=== PATIENT | male | born 1955 | race Caucasian/White ===

== ENCOUNTER 2018-02-12 15:11 | Inpatient (IN) ==
[2018-02-12] MEDS ORDERED: *HR* Heparin 5,000 UNIT/ML VIAL SQ ONE (15:30)
[2018-02-12] MEDS ORDERED: *HR* Ticagrelor 90 MG TABLET PO ONE (15:30)
[2018-02-12] MEDS ORDERED: Aspirin 81 MG TAB.CHEW PO ONE (15:31)
[2018-02-12] MEDS ORDERED: *HR* Ticagrelor 90 MG TABLET ONE (15:32)
[2018-02-12] MEDS ORDERED: 0.9 % Sodium Chloride 1,000 ML ONE ×2 (15:33→16:23)
[2018-02-12] MEDS ORDERED: Nitroglycerin 0.4 MG TAB.SUBL SL PRN (15:33)
[2018-02-12] MEDS ORDERED: Aspirin 81 MG TAB.CHEW ONE (15:33)
[2018-02-12] MEDS ORDERED: *HR* Heparin 5,000 UNIT/ML VIAL ONE (15:33)
[2018-02-12] MEDS ORDERED: 0.9 % Sodium Chloride 1,000 ML IVC ONE (15:38)
--- NOTE | 2018-02-12 15:42 | Emergency Department Note ---
Disposition Clinical Impression: Chest pain ST elevation myocardial infarction (STEMI) Qualifiers: Involved coronary artery: unspecified coronary artery Qualified Code(s): I21.3 - ST elevation (STEMI) myocardial infarction of unspecified site Disposition: Admitted As Inpatient Condition: Fair Time of Disposition: 18:09 Chest Pain HPI - General Chief Complaint: ED Chest Pain Stated Complaint: CP Fever post Op Time Seen by Provider: 02/12/18 15:14 Source: family Mode of arrival: private vehicle Limitations: no limitations Vital Signs Reviewed: Yes Nursing Notes Reviewed: Yes - History of Present Illness HPI Narrative: Pt is 62M with a past medical history of 2 previous heart attacks with his last one in his thousand and 10, with the placement of 3 stents between the 2 heart attacks, denies any open heart surgeries. States that he had a colonoscopy today at noon, and then around 2:30 he started with some chest pain after he got home and sat down. He describes the chest pain as in his upper chest, with radiation to his jaw, he feels a little nauseated, lightheaded, dizzy, and weak. He states he has not eaten since yesterday due to preparing for the colonoscopy. States that his pain is not worse with deep breathing and not worse with exertion. He states that it is a 6 out of 10 in severity. States that he is normally on Plavix, but has not had any for 5 days in preparation for his colonoscopy, he is normally on a baby aspirin but also did not take that for the last 5 days. Denies abdominal pain, denies vomiting, does state that he feels hot. Severity scale (1-10): 6 - Related Data Allergies Allergy/AdvReac Type Severity Reaction Status Date / Time Penicillins Allergy See Verified 07/28/15 06:20 Comments Constitutional: Reports: weakness. 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 Denies: abdominal pain, vomiting, diarrhea, constipation Chest Pain PMH - Past Medical History Medical history: Reports: hyperlipidemia, hypertension, myocardial infarction Surgical history: Reports: angioplasty/stent Psychiatric history: Reports: no psych history - Social History Smoking Status: Current every day smoker Alcohol use: Reports: heavy Drug use: Reports: none Physical Exam - General Limitations: no limitations General appearance: alert - Head Head exam: atraumatic, normocephalic - Eye Eye exam: Present: normal appearance, PERRL - ENT ENT exam: normal exam, normal oropharynx, mucous membranes moist - Neck Neck exam: Present: normal inspection, full ROM - Chest Chest inspection: Present: normal inspection, symmetric chest wall rise - Respiratory Respiratory exam: Present: normal lung sounds bilaterally. Absent: respiratory distress, wheezes - Cardiovascular Cardiovascular exam: Present: regular rate, normal rhythm - Abdominal Exam Abdominal exam: Present: soft, Non-Tender - Neurological Exam Neurological exam: Present: alert, oriented X3 - Psychiatric Psychiatric exam: Present: normal affect, normal mood - Skin Skin exam: Present: other (cool, clammy, diaphoretic) Course - Reevaluation(s) Reevaluation #1: STEMI alert called Time: 15:25 Vital Signs Temperature 97.5 F L 02/12/18 15:27 Pulse Rate 71 02/12/18 15:27 Respiratory Rate 22 02/12/18 15:27 Blood Pressure 176/119 02/12/18 15:27 O2 Sat by Pulse Oximetry 97 02/12/18 15:27 Temperature 97.7 F 02/12/18 17:44 Pulse Rate 80 02/12/18 17:49 Respiratory Rate 12 02/12/18 17:49 Blood Pressure 168/108 02/12/18 17:49 O2 Sat by Pulse Oximetry 97 02/12/18 17:49 Oxygen Delivery Oxygen Delivery Room Air Chest Pain - MDM Narrative Medical decision making narrative: Patient's history of 2 previous MIs, and sudden onset of chest pain after his colonoscopy today, along with EKG findings, and physical exam findings were very concerning for STEMI. STEMI alert was called, laborer chemical processing responded and took the patient to [facility] at 1606. - Medical Records Medical records reviewed: Yes I reviewed the patient's medical records. - Lab Data Lab results reviewed: Yes I reviewed the patient's lab results. Result diagrams: 02/12/18 15:30 02/12/18 15:30 Lab Results 02/12/18 02/12/18 02/12/18 Range/Units 15:30 15:30 15:30 WBC 12.7 H (4.3-11.1) K/mcL RBC 5.69 H (4.19-5.50) M/mcL Hgb 17.8 H (12.9-16.9) g/dL Hct 52.3 H (37.5-50.1) % MCV 91.9 (83.0-100.0) fL MCH 31.3 (28.0-33.3) pg MCHC 34.0 (31.6-35.5) g/dL RDW 12.5 (11.5-14.5) % Plt Count 181 (140-400) K/mcL MPV 11.3 (9.4-12.4) fL Immature Gran % 0.4 (0-4) % Seg Neutrophils % 77.9 % Lymphocytes % 14.3 % Monocytes % 6.1 % Eosinophils % 0.9 % Basophils % 0.4 % Neutrophils # 9.9 H (1.6-8.9) K/mcL Lymphocytes # 1.8 (0.6-4.6) K/mcL Monocytes # 0.8 (0.0-1.3) K/mcL Eosinophils # 0.1 (0.0-0.6) K/mcL Basophils # 0.1 (0.0-0.2) K/mcL PT 12.4 H (9.4-12.1) Seconds INR 1.1 APTT 32.9 (26.0-36.0) Seconds Sodium 138 (136-145) mEq/L Potassium 3.9 (3.5-5.1) mEq/L Chloride 104 (98-107) mEq/L Carbon Dioxide 26 (23-29) mEq/L BUN 12 (8-23) mg/dL Creatinine 1.29 (0.70-1.30) mg/dL Est GFR ( Amer) > 60 (> 60) Est GFR (Non-Af Amer) 57 L (> 60) BUN/Creatinine Ratio 9 (6-26) Glucose 153 H (70-105) mg/dL Calculated Osmolality 289 (280-300) Calcium 9.3 (8.6-10.3) mg/dL Troponin I 0.03 (< 0.04) ng/mL Blood Type Antibody Screen 02/12/18 Range/Units 15:56 WBC (4.3-11.1) K/mcL RBC (4.19-5.50) M/mcL Hgb (12.9-16.9) g/dL Hct (37.5-50.1) % MCV (83.0-100.0) fL MCH (28.0-33.3) pg MCHC (31.6-35.5) g/dL RDW (11.5-14.5) % Plt Count (140-400) K/mcL MPV (9.4-12.4) fL Immature Gran % (0-4) % Seg Neutrophils % % Lymphocytes % % Monocytes % % Eosinophils % % Basophils % % Neutrophils # (1.6-8.9) K/mcL Lymphocytes # (0.6-4.6) K/mcL Monocytes # (0.0-1.3) K/mcL Eosinophils # (0.0-0.6) K/mcL Basophils # (0.0-0.2) K/mcL PT (9.4-12.1) Seconds INR APTT (26.0-36.0) Seconds Sodium (136-145) mEq/L Potassium (3.5-5.1) mEq/L Chloride (98-107) mEq/L Carbon Dioxide (23-29) mEq/L BUN (8-23) mg/dL Creatinine (0.70-1.30) mg/dL Est GFR ( Amer) (> 60) Est GFR (Non-Af Amer) (> 60) BUN/Creatinine Ratio (6-26) Glucose (70-105) mg/dL Calculated Osmolality (280-300) Calcium (8.6-10.3) mg/dL Troponin I (< 0.04) ng/mL Blood Type O POSITIVE Antibody Screen NEGATIVE - Radiology Data Radiology results reviewed: Yes I reviewed the patient's radiology results. Chest X-Ray 02/12/18 15:19 IMPRESSION: No acute process. D/ / Brendon Gonsalez MD / Brendon Gonsalez MD Interpreting Provider: Brendon Gonsalez MD - EKG Data EKG attestation: Yes I reviewed and interpreted this EKG. EKG results narrative: EKG #1 1523: HR 76, rhythm sinus with multiple PVCs, left axis -62. IL 184, QRS 126, QTC 482. 1mm ST elevation in lead I and aVL, concerning for posterior STEMI. EKG #2 1537: HR 79, Rhythm sinus with multiple PVCs, left axis -53. IL 176, QRS 132, QTC 475. 1mm ST elevation in Lead I, aVL. Reciprocal ST depression in V2, V3. Concerning for posterior STEMI. Attestation Statement - Attestation Attestation: I, Vinny Brito DO, examined this patient [id number] and my medical decision-making was reviewed with Dr. Kirsten Perales, Resident Physician. I agree with the documented findings, disposition and treatment plan as described except to the extent set forth below. Please see my progress notes for details.
[2018-02-12 15:44] LABS: Basophils # 0.1 K/mcL (0.0-0.2); Basophils % 0.4 %; Eosinophils # 0.1 K/mcL (0.0-0.6); Eosinophils % 0.9 %; Hematocrit 52.3 % (37.5-50.1); Hemoglobin 17.8 g/dL (12.9-16.9); Immature Granulocytes % 0.4 % (0-4); Lymphocytes # 1.8 K/mcL (0.6-4.6); Lymphocytes % 14.3 %; Mean Corpuscular Hemoglobin 31.3 pg (28.0-33.3); Mean Corpuscular Volume 91.9 fL (83.0-100.0); Mean Platelet Volume 11.3 fL (9.4-12.4); Monocytes # 0.8 K/mcL (0.0-1.3); Monocytes % 6.1 %; Neutrophils # 9.9 K/mcL (1.6-8.9); Platelet Count 181 K/mcL (140-400); Red Blood Count 5.69 M/mcL (4.19-5.50); Red Cell Distribution Width 12.5 % (11.5-14.5); Segmented Neutrophils % 77.9 %
[2018-02-12] MEDS ORDERED: *HR* Heparin 5,000 UNIT/ML VIAL IVP ONE ×3 (15:45→15:52)
[2018-02-12 15:51] LABS: INR 1.1; Prothrombin Time 12.4 Seconds (9.4-12.1)
[2018-02-12] MEDS: Nitroglycerin 25 MG/250 ML INFUS..BTL IVC SCH ×2 (15:51→19:30)
[2018-02-12] MEDS ORDERED: *HR* Heparin 5,000 UNIT/ML VIAL IVP PRN ×2 (15:52)
[2018-02-12 15:53] LABS: Activated Partial Thrombo Time 32.9 Seconds (26.0-36.0)
[2018-02-12 16:00] LABS: Troponin I 0.03 ng/mL (< 0.04)
[2018-02-12] MEDS ORDERED: Heparin 25,000 UNIT/500 ML D5W 25,000 UNIT/500 ML BAG IVC SCH (16:00)
[2018-02-12 16:04] LABS: BUN/Creatinine Ratio 9 (6-26); Blood Urea Nitrogen 12 mg/dL (8-23); Calcium 9.3 mg/dL (8.6-10.3); Carbon Dioxide 26 mEq/L (23-29); Chloride 104 mEq/L (98-107); Glucose 153 mg/dL (70-105); Osmolality,Calculated 289 (280-300); Potassium 3.9 mEq/L (3.5-5.1); Sodium 138 mEq/L (136-145); eGFR For Non-African Americans 57 (> 60)
[2018-02-12] MEDS ORDERED: *HR* Heparin 10,000 UNIT/10 ML VIAL ONE (16:23)
[2018-02-12] MEDS ORDERED: Heparin 1,000 UNITS/500 mL 500 ML ONE (16:23)
[2018-02-12] MEDS ORDERED: ISOVUE-370 200 ML INFUS..BTL IV ONE ×2 (16:23→16:59)
--- NOTE | 2018-02-12 16:24 | Emergency Department Note ---
Disposition Clinical Impression: Chest pain, ST elevation myocardial infarction (STEMI) Disposition: Admitted As Inpatient Condition: Fair Time of Disposition: 16:30 General Adult HPI - General Chief complaint: ED Chest Pain Stated complaint: CP Fever post Op Time Seen by Provider: 02/12/18 15:14 Source: family Mode of arrival: private vehicle Limitations: no limitations - History of Present Illness Pain Scale: 6 - Related Data Home Medications Medication Instructions Recorded Confirmed Atorvastatin [Lipitor] 40 mg PO HS 02/12/18 02/12/18 Clopidogrel [Plavix] 75 mg PO DAILY 02/12/18 02/12/18 Lisinopril [Zestril] 20 mg PO DAILY 02/12/18 02/12/18 Allergies Allergy/AdvReac Type Severity Reaction Status Date / Time Penicillins Allergy See Verified 07/28/15 06:20 Comments Constitutional: Reports: weakness. 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 Denies: abdominal pain, vomiting, diarrhea, constipation Past Medical History - Past Medical History Medical history: Reports: hyperlipidemia, hypertension, myocardial infarction Surgical history: Reports: angioplasty/stent Psychiatric history: Reports: no psych history - Social History Smoking Status: Current every day smoker Smokeless Tobacco Status: No Alcohol use: Reports: heavy Drug use: Reports: none Physical Exam - General Limitations: no limitations General appearance: alert Course Vital Signs Temperature 97.5 F L 02/12/18 15:27 Pulse Rate 71 02/12/18 15:27 Respiratory Rate 22 02/12/18 15:27 Blood Pressure 176/119 02/12/18 15:27 O2 Sat by Pulse Oximetry 97 02/12/18 15:27 Temperature 97.5 F L 02/12/18 15:27 Pulse Rate 78 02/12/18 15:33 Respiratory Rate 20 02/12/18 15:33 Blood Pressure 174/100 02/12/18 15:33 O2 Sat by Pulse Oximetry 99 02/12/18 15:33 Oxygen Delivery Oxygen Delivery Room Air Medical Decision Making - Lab Data Result diagrams: 02/12/18 15:30 02/12/18 15:30 Lab Results 02/12/18 02/12/18 02/12/18 Range/Units 15:30 15:30 15:30 WBC 12.7 H (4.3-11.1) K/mcL RBC 5.69 H (4.19-5.50) M/mcL Hgb 17.8 H (12.9-16.9) g/dL Hct 52.3 H (37.5-50.1) % MCV 91.9 (83.0-100.0) fL MCH 31.3 (28.0-33.3) pg MCHC 34.0 (31.6-35.5) g/dL RDW 12.5 (11.5-14.5) % Plt Count 181 (140-400) K/mcL MPV 11.3 (9.4-12.4) fL Immature Gran % 0.4 (0-4) % Seg Neutrophils % 77.9 % Lymphocytes % 14.3 % Monocytes % 6.1 % Eosinophils % 0.9 % Basophils % 0.4 % Neutrophils # 9.9 H (1.6-8.9) K/mcL Lymphocytes # 1.8 (0.6-4.6) K/mcL Monocytes # 0.8 (0.0-1.3) K/mcL Eosinophils # 0.1 (0.0-0.6) K/mcL Basophils # 0.1 (0.0-0.2) K/mcL PT 12.4 H (9.4-12.1) Seconds INR 1.1 APTT 32.9 (26.0-36.0) Seconds Sodium 138 (136-145) mEq/L Potassium 3.9 (3.5-5.1) mEq/L Chloride 104 (98-107) mEq/L Carbon Dioxide 26 (23-29) mEq/L BUN 12 (8-23) mg/dL Creatinine 1.29 (0.70-1.30) mg/dL Est GFR ( Amer) > 60 (> 60) Est GFR (Non-Af Amer) 57 L (> 60) BUN/Creatinine Ratio 9 (6-26) Glucose 153 H (70-105) mg/dL Calculated Osmolality 289 (280-300) Calcium 9.3 (8.6-10.3) mg/dL Troponin I 0.03 (< 0.04) ng/mL Critical Care Time Critical Care Time: Yes Total Critical Care Time: 35 Attestation: Critical care performed: Time is exclusive of separately billable procedures. Time includes: direct patient care, patient reassessment, coordination of patient care, interpretation of data (laboratory data, radiology data, and respiratory data), review of patient's medical records, medical consultation and documentation of patient care. Procedures included in critical care time: Procedures excluded from critical care time: Attestation Statement - Attestation Attestation: I, Vinny Brito DO, examined this patient [id number] and my medical decision-making was reviewed with Dr. Adán Dorsey, Resident Physician. I agree with the documented findings, disposition and treatment plan as described except to the extent set forth below. Please see my progress notes for details. 62-year-old male presents to the emergency room with chest pain. Patient has chest pain that started approximately one half hours after having a colonoscopy completed today. He has had a significant history of coronary artery disease and stenting in 2008. Patient had a colonoscopy completed today looking for polyps as well as a screening evaluation. He wonders sedation without any complication. He woke up and felt well and then within the next on half. Chest pain. He called his family very much the emergency room again after that. On presentation here the patient was hypertensive so diaphoretic and comfortable. He is describing midsternal chest pain that radiated into his left arm and neck and diaphoresis at home. He did attempt to take one nitroglycerin prior to coming in. Initial EKG was concerning for ST segment elevation in leads 1 aVL in the lateral precordial leads but he did have premature ventricular contractions noted. There is also some subtle ST segment depressions in leads 3 and aVF. Because of the systemic was called at 1530. Dr. faria is requested EKG for review and recommend starting brilinta heparin. Patient's physical exam is otherwise unremarkable lungs are clear heart is regular abdomen is soft she has no distention pain or symptoms concerning for perforation. Denies any GI bleed this time or even prior to the events. Patient was typically on Plavix and it was stopped. Dr. Kaba presented to the bedside after repeat EKG was collected with no significant changes. He evaluated the EKG as well as the patient the bedside and did recommend patient going for catheterization. The netting weaver Dr. Cota is currently in a case we will be taken directly to the Instructional Support Assistant. Patient was started on nitroglycerin drip after the loading doses of the anticoagulation medication were given. Patient is concerning based on the symptoms history and presentation for myocardial infarctions or angina. He will be evaluated further after the catheterization is completed. See detailed documentation of the physical exam, medical intervention, medical decision- making disposition the resident physician's note. 35 minutes of critical care provider the patient's treatment course secondary to STEMI evaluation multidisciplinary intervention and evaluation. 1615 Patient was transported to the catheterization lab at [facility] with in place in appropriate medications provided. His chest pain prior to leaving our department was 6 out of 10. Patient will require cardiac catheterization the continuation of care in the inpatient setting.
[2018-02-12] MEDS ORDERED: Nitroglycerin 1,000 MCG/10 ML VIAL IV ONE (16:25)
--- NOTE | 2018-02-12 16:55 | Cardiology History & Physical ---
Date of Encounter: 02/12/18 Time of Encounter: 16:53 Assessment and Plan (1) ST elevation myocardial infarction (STEMI) Current Visit: Yes Status: Acute 62-year-old male with a history of CAD, remote PCI in 2008. Presents with acute onset of chest pain days after stopping aspirin and Plavix for colonoscopy , which was performed earlier today. Presentation is concerning for ACS. ECG does suggest mild ST elevation in the lateral leads, 1 and aVL. Case discussed with patient, family, and ER physician. Recommend ACS therapy. Start aspirin, Plavix, heparin, nitroglycerin, statin, and beta ayush therapy recommended. Risks, benefits, and alternatives to cardiac catheterization discussed with patient. He voiced understanding and agreed to proceed with the procedure. Case discussed with interventional cardiology and recommendation made to proceed with cardiac catheterization. Further recommendations will be made based upon their findings. Check TTE. The assessment and plan as outlined above was discussed with the patient and/or family members who expressed understanding and agreement. All questions were answered. Qualifiers: Involved coronary artery: unspecified coronary artery Qualified Code(s): I21.3 - ST elevation (STEMI) myocardial infarction of unspecified site History of Present Illness Chief complaint: Chest discomfort HPI: Mr. Martinez is a 62 year old male with a history of CAD. Reports prior PCI at the [facility] in 2008. Patient has been following with Dr. Singletary in [place] the last few years. Reports he was last seen a few months ago, no changes made at that time. Recently, aspirin and Plavix held for colonoscopy, which was performed today. After going home, patient developed sudden chest pain. Describes as a substernal aching sensation. Blood pressure noted to be elevated upon arrival. ECG obtained, which demonstrated subtle ST elevation in the lateral leads and minor reciprocal changes in lead 3. STEMI alert placed. Past Med Surg Social Fam HX - Past Medical History Medical history: hyperlipidemia, hypertension, myocardial infarction Psychiatric history: no psych history - Past Surgical History Surgical History: angioplasty/stent - Social History Smoking Status: Current every day smoker Smokeless Tobacco Status: No Alcohol use: heavy Drug use: none Medications and Allergies Atorvastatin [Lipitor] 40 mg PO HS 02/12/18 [History] Clopidogrel [Plavix] 75 mg PO DAILY 02/12/18 [History] Lisinopril [Zestril] 20 mg PO DAILY 02/12/18 [History] 3 Allergy/AdvReac Type Severity Reaction Status Date / Time Penicillins Allergy See Verified 07/28/15 06:20 Comments All Systems Review: The remainder of the systems were reviewed and are negative - Cardiovascular Cardiovascular: as per HPI, chest pain at rest, chest pain with exertion, dyspnea at rest - Gastrointestinal Gastrointestinal: nausea Physical Examination General: Conversant, Other (Patient appeared be in mild distress during my encounter with him. Patient had his hand on his chest the entire conversation.) HEENT: Normocephaly, Mucus Membranes Moist Neck: No JVD Cardiac: Reg Rate and Rhythm, Normal S1 and S2, No Murmur Lungs: Normal Breath Sounds, No Wheeze, Rales, Rhonchi Neuro: Alert and responsive, No focal deficits noted Abdomen: Soft, Non-Tender, Other (Obese) Skin: No rashes noted on visualized skin Musculoskeletal: No Chest Wall Tenderness Extremities: No Clubbing, No Cyanosis, No Edema Results 02/12/18 15:30 02/12/18 15:30 - EKG Interpretation EKG results cardiology: personally reviewed
--- NOTE | 2018-02-12 17:25 | Invasive Diagnostic Lab Proc ---
Name: Brendon Martinez Date of Study: 02/12/2018 Date: 1955 Ht: 74.0in Medical Record#: [id number] Age: 62 Wt: 291.01lb Gender: Male BSA: 2.55 Order #: [id number] BMI: 37.35 Physicians Procedure Physician: Arthur Cota DO Referring MD: Referring MD: Staff Name Position Time In Malinda Ochoa RT Monitor 04:15 PM Malinda Ochoa RT Monitor 04:15 PM Hari Echevarria RN Front Desk Host 04:15 PM Indications Indication STEMI Procedures Performed Procedure L HRT ARTERY/VENTRICLE ANGIO PRQ CARD REVASC IA 1 VSL Pre-Procedure Checklist Informed consent is complete signed and on chart. H&P is on chart. ID band is on and ID verified with patient. Patient NPO for procedure The procedure was described for the patient and questions were answered. Blood Pressure: 174/123 ECG is on chart. Rhythm: NSR Plan of Care Patient will tolerate the procedure without complications. Adequate level of comfort will be maintained. Hemodynamics will remain stable Patient will recover from procedure without complications. Respiratory function will be maintained. Cardiac rhythm will remain stable. Patient temperature will be maintained. Patient and/or family have verbalized understanding of the procedure. Patient Education Chief Complaint/Reason for Test: Cardiac Cath Developmental Category: Adult (18-64 years) Developmentally Appropriate for Age: Yes Learning Barriers: None Education Needs: Procedure Education Method: Verbal Information Taught: Cardiac Cath Educational Evaluation: Able to repeat information Intravenous Access Time IV Size Location DC'd Fluid/Drip Rate Units RN 04:16 PM 18g 1 1/4" Patent On Arrival Lt Hand Nitroglycerin 25 mcg/min Hari Echevarria RN 04:16 PM 18g 1 1/4" Patent On Arrival Lt Antecubital Allergies Penicillins Vital Signs Time BP (mmHg) HR (bpm) O2 Sat. RR (bpm) LOC 04:16 PM / % 5 = Fully awake and oriented or at pre-proc level 04:16 PM / % 4 = Oriented but drowsy 04:31 PM / % 5 = Fully awake and oriented or at pre-proc level 04:46 PM 162 / 94 74 97 % 18 04:50 PM 122 / 96 56 96 % 27 04:55 PM 148 / 98 92 97 % 11 05:00 PM 150 / 86 83 94 % 11 05:05 PM 159 / 101 76 95 % 21 04:10 PM 174 / 123 83 96 % 15 04:16 PM 168 / 102 73 96 % 17 04:20 PM 158 / 85 76 96 % 11 04:25 PM 143 / 89 103 95 % 7 04:30 PM 180 / 96 78 95 % 10 04:35 PM 151 / 95 80 97 % 12 04:41 PM 154 / 83 59 97 % 13 04:45 PM 112 / 90 68 99 % 12 Procedural Medications Time Medication Dose Units Method Given By 04:16 PM Oxygen 2 L/min nasal cannula Hari Echevarria RN 04:18 PM Lidocaine 2% 10 ml Subcutaneous Arthur Cota DO 04:33 PM Heparin 2000 units Intravenous Hari Echevarria RN Eunice Score Preprocedure Postprocedure Activity 2- Moves 4 extremities sustained head lift Activity Circulation 2- SBP +/= 20 points of pre-anesthetic level Circulation Consciousness 2- Awake and alert oriented x 3 Consciousness O2 Saturation 2- Able to maintain O2 satruation of 92% on room air O2 Saturation Respiratory 2- Able to deep breathe and cough well Respiratory Total Score 10 Total Score Contrast Agent: Isovue Diagnostic Contrast: 180 ml Total Contrast: 180 ml Fluoro Dose: 282 mGy Activated Clotting Time Time Seconds to Clot 04:27 PM 191 04:46 PM 386 Procedure Log Time Note Enter By 04:04 PM Pt arrived to laboratory helper 1 at 16:04 [facility] PM CathStat 04:09 PM Vitals capture started with the following parameters, Patient=Adult, Interval=5 min, Initial Enhsovge=991 mmHg, Deflation Rate=3 mmHg, Cuff placed on Right Arm 04:10 PM HR=83 bpm, UHYL=443/123 mmhg, SpO2=96.0 %, Resp=15 B/min 04:15 PM Malinda Ochoa RT Position: Monitor Time in: 16:15 paula 04:15 PM Malinda Ochoa RT Position: Monitor Time in: 16:15 paula 04:15 PM Hari Echevarria RN Position: Front Desk Host Time in: 16:15 paula 04:15 PM Patient charges- Angio tray pack, Navilyst 3mm J, Pulse Oximetry and ACIST tubing and transducer [facility] 04[facility]15 PM IV Supplies used: J loop Angio Cath. jcallihan 04:15 PM Case Delayed No jcallihan :15 PM Hair removed from procedure site in procedure lab using clippers. Bilateral groin prepped with Chloraprep by Malinda Ochoa, then patient was draped. Skin intact. [facility] PM Physician arrived 16:15 [facility] 04[facility]15 PM Meet and greet completed [facility] 04[facility] PM Sign in performed according to hospital policy. Informed consent was obtained. [facility]16 PM Procedure start 16:16 [facility] PM Time: 16:16 Oxygen on at 2 L/min per nasal cannula by aHri Echevarria RN [facility] PM Time: 16:16 Patient comfortable and pain free: Yes [facility] :16 PM Time: 16:16LOC: 5 = Fully awake and oriented or at pre-proc level [facility]16 PM HR=73 bpm, YEXQ=907/102 mmhg, SpO2=96.0 %, Resp=17 B/min 04:18 PM Time out was performed according to hospital policy. Conscious sedation and anesthesia was achieved (see medication log with in this report above) [facility] 04:18 PM Critical cardiac patient with acute IA was brought emergently to the cardiac medical lab technologist for immediate coronary angiography and intervention if clinically indicated. all:18 PM Time: 16:18 10 ml Lidocaine 2% to right groin Subcutaneous Given by Arthur Cota DO [facility] 04:20 PM Micro-Introducer Kit utilized for sheath [facility] 04[facility] PM HR=76 bpm, VHAI=409/85 mmhg, SpO2=96.0 %, Resp=11 B/min 04:22 PM 0.035 180cm Glidewire wire [id number] [facility] 04:23 PM Access obtained by percutaneous puncture. 6Fr 10cm Terum[employer] [place] sheath placed in left Femoral artery. [id number] jcallihan 04:23 PM ACT drawn jcallihan 04:24 PM 5Fr FR 4 catheter inserted over the wire DNC jcallihan 04:25 PM EQ=002 bpm, BMGH=340/89 mmhg, SpO2=95.0 %, Resp=7 B/min 04:25 PM RCA angiography performed in multiple views. jcallihan 04:25 PM Recorded Pressure: Ao, HR=75, Condition=Condition 1 (Aorta) Ao 145/80/111 04:26 PM Catheter removed jcallihan 04:26 PM 5Fr FL 4 catheter inserted over the wire [facility] jcallihan 04:26 PM wire removed jcallihan 04:26 PM LCA angiography performed in multiple views. jcallihan 04:27 PM At 16:27 the ACT was 191 seconds. jcallihan 04:27 PM Recorded Pressure: Ao, HR=77, Condition=Condition 1 (Aorta) Ao 68/22/42 04:29 PM Catheter removed jcallihan 04:30 PM 6Fr MP1 Runway guide catheter was used to cannulate the PCI vessel successfully. reused? No jcallihan 04:30 PM HR=78 bpm, UZLJ=635/96 mmhg, SpO2=95.0 %, Resp=10 B/min 04:31 PM Catheter crossed the aortic valve and was selectively placed in the left ventricle. Pressures recorded on pullback for left heart catheterization. jcallihan 04:31 PM Bolus angiogram of left Ventricle complete: hand injected jcallihan 04:31 PM Time: 16:16LOC: 4 = Oriented but drowsy jcallihan 04:31 PM Time: 16:16 Patient comfortable and pain free: Yes jcallihan 04:31 PM Recorded Pressure: LV, WL=565, Condition=Condition 1 (Left Ventricle) LV 100/12/21 04:32 PM Recorded Pressure: LV, Ao, HR=78, Condition=Condition 1 (Left Ventricle) LV 180/7/19, (Aorta) Ao 159/67/114 04:33 PM Guide catheter removed intact. jcallihan 04:33 PM Time: 16:33 Heparin 2000 units Intravenous Given by Hari Echevarria RN jcallihan 04:33 PM 6Fr XB LAD 3.5 [place] Bright-Tip guide catheter was used to cannulate the PCI vessel successfully. reused? No jcallihan 04:33 PM wire removed jcallihan 04:35 PM .014 ChoICE PT Extra Support 300cm guide wire across target lesion- successful. reused? No jcallihan 04:35 PM HR=80 bpm, VCPH=032/95 mmhg, SpO2=97.0 %, Resp=12 B/min 04:38 PM 2.5 mm x 30 mm Emerge Monorail balloon across target lesion- successful. reused? No jcallihan 04:39 PM Balloon inflated @ 8 charla for 18 seconds jcallihan 04:40 PM Balloon catheter removed intact. jcallihan 04:41 PM HR=59 bpm, VBYP=082/83 mmhg, SpO2=97.0 %, Resp=13 B/min 04:42 PM ACT drawn jcallihan 04:43 PM 3.0mm x 16mm Synergy drug-eluting stent across target lesion- successful Lot #[id number] jcallihan 04:44 PM Stent deployed @ 14 charla for 16 seconds jcallihan 04:45 PM HR=68 bpm, AVLA=744/90 mmhg, SpO2=99.0 %, Resp=12 B/min 04:45 PM NIBP STAT measurement started. 04:46 PM HR=74 bpm, MDYK=033/94 mmhg, SpO2=97 %, Resp=18 B/min 04:46 PM At 16:46 the ACT was 386 seconds. jcallihan 04:47 PM Stent delivery system removed intact. jcallihan 04:47 PM 3.0mm x 16mm Synergy drug-eluting stent across target lesion- successful Lot #[id number] jcallihan 04:48 PM Stent deployed @ 16 charla for 14 seconds jcallihan 04:48 PM Stent balloon reinflated @ 14 charla for 10 seconds jcallihan 04:48 PM Stent delivery system removed intact. jcallihan 04:50 PM HR=56 bpm, PYVD=079/96 mmhg, SpO2=96.0 %, Resp=27 B/min 04:51 PM 2.5mm x 8mm Synergy drug-eluting stent across target lesion- successful Lot #[id number] jcallihan 04:53 PM Stent deployed @ 12 charla for 17 seconds jcallihan 04:53 PM Stent balloon reinflated @ 15 charla for 8 seconds jcallihan 04:53 PM Stent delivery system removed intact. jcallihan 04:54 PM nitro d/c jcallihan 04:55 PM HR=92 bpm, FDSL=678/98 mmhg, SpO2=97.0 %, Resp=11 B/min 04:55 PM 3.5mm x 8mm Synergy drug-eluting stent across target lesion- successful Lot #[id number] jcallihan 04:57 PM Stent deployed @ 16 charla for 16 seconds jcallihan 04:57 PM Stent delivery system removed intact. jcallihan 05:00 PM Bolus angiogram of right Femoral complete: hand injected jcallihan 05:00 PM HR=83 bpm, OTDG=709/86 mmhg, SpO2=94.0 %, Resp=11 B/min 05:01 PM Coronary Dominance: right jcallihan 05:01 PM Lesion found in 1st Marginal. Pre Stenosis: 100 Pre KAREN Flow: 0 jcallihan 05:03 PM Lesion found in Proximal RCA. Pre Stenosis: 60 Pre KAREN Flow: jcallihan 05:03 PM Lesion found in Distal RCA. Pre Stenosis: 100 Pre KAREN Flow: jcallihan 05:03 PM Lesion found in Mid Circumflex. Pre Stenosis: 100 Pre KAREN Flow: jcallihan 05:04 PM Left Main Coronary Artery with 0% stenosis jcallihan 05:04 PM Proximal Left Anterior Descending Coronary Artery with 0% stenosis. If graft is supplying this territory, 0 % stenosis. jcallihan 05:04 PM Mid/Distal Left Anterior Descending Coronary Artery and diagonal branches with 0% stenosis. If graft is supplying this area, 0 % stenosis jcallihan 05:04 PM Circumflex, Obtuse Marginal, Left Posterior Descending, and Left Posterolateral Coronary Arteries with 100 % stenosis. If graft is supplying this area, 0 % stenosis jcallihan 05:04 PM Right Coronary, Right Posterior Descending Arteries with Right Posterolateral and Acute Marginal branches with 100 % stenosis. If graft is supplying this area, 0 % stenosis jcallihan 05:04 PM Ramus with 0% stenosis. If graft is supplying this area, 0 % stenosis jcallihan 05:04 PM Procedure completed at 17:04 02/12/2018 jcallihan 05:04 PM Did you address KAREN flow and Dominance? Yes jcallihan 05:05 PM Sign out completed: Radiation Dose 2596.42 mGy, 282.03 Gy/cm2 Fluoro Time: 12.2 Isovue 370 - 200ml contrast 180 ml given by Arthur Cota DO. Complications: None. The patient was discharged out of the medical lab technologist in stable condition. Cardiac Rehab Consult needed: NoConfirmed administered medications: Yes jcallihan 05:05 PM HR=76 bpm, KVEB=854/101 mmhg, SpO2=95.0 %, Resp=21 B/min 05:06 PM Isovue 370 - 200ml,1 Bottle(s) used. jcallihan 05:06 PM Sheath left in place to be pulled on floor/holding area jcallihan 05:06 PM Estimated Blood Loss: minimal jcallihan 05:06 PM Post ECG NSR jcallihan 05:06 PM Post Blood Pressure 159/101 jcallihan 05:07 PM Information taught Cardiac Cath and PCI jcallihan 05:07 PM Time: 16:31LOC: 5 = Fully awake and oriented or at pre-proc level jcallihan 05:07 PM Time: 16:31 Patient comfortable and pain free: Yes jcallihan 05:08 PM Education needs Procedure, Plan of Care, and Responsibilities of Patient in Care jcallan 05:08 PM Learning barriers :None jcallihan 05:08 PM Education Methods Verbal [facility] 05[facility] PM Education evaluation Able to repeat information allan 05:08 PM Site status No bleeding/hematoma - Rt Groin as reported by Ford Hernandez RT (R) at 17:08 jcallihan 05:08 PM Opsite applied jcallihan 05:09 PM Plavix, Effient or Brilinta given No jcallihan 05:09 PM Delay to floor No jcallihan 05:09 PM Patient out of room: 17:09 jcallihan 05:09 PM Family placed in consult room. jcallihan 05:09 PM Complications: None jcallihan Complications Complication None None Hemodynamics Pressures Site Systolic/A Wave Diastolic/V Wave Mean AO 145 80 111 AO 68 22 42 LV 100 12 21 LV 180 7 19 AO 159 67 114 Post Procedure Information Blood Pressure: 159/101 mmHg Rhythm: NSR Post procedural instructions were given Site Checks Time Location Status Staff Sheath In? Note 05:08 PM Rt Groin No bleeding/hematoma Ford Hernandez RT (R) Pulses Updated by Hari Echevarria RN on 02/12/2018 5:18:54 PM electronically signed on 02/12/2018 5:19:24 PM with status of Final
[2018-02-12] MEDS: 0.9 % Sodium Chloride 1,000 ML IVC SCH ×2 (19:12→20:40)
[2018-02-12] MEDS ORDERED: Lisinopril 20 MG TABLET PO SCH (20:00)
[2018-02-12] MEDS: *HR* Ticagrelor 90 MG TABLET PO SCH (20:43)
[2018-02-12] MEDS ORDERED: *HR* Atropine Sulfate 1 MG/10 ML SYRINGE ONE (22:02)
[2018-02-13] MEDS: 0.9 % Sodium Chloride 1,000 ML IVC SCH (06:17)
--- NOTE | 2018-02-13 07:53 | Pulmonology Consult Note ---
Date of Encounter: 02/13/18 Time of Encounter: 07:46 Assessment and Plan (1) ST elevation myocardial infarction (STEMI) Current Visit: Yes Status: Acute Hemodynamically stable remains borderline hypertensive For management to cardiology including dual antiplatelet therapy beta ayush statin therapy Would encourage transition from DARIANA inhibitor to angiotensin receptor ayush because of cough that the patient has complained of in the past Qualifiers: Involved coronary artery: unspecified coronary artery Qualified Code(s): I21.3 - ST elevation (STEMI) myocardial infarction of unspecified site (2) COPD suggested by initial evaluation Current Visit: Yes Status: Acute Patient has had over a [id number] history of smoking and has had significant industrial exposures I suspect some degree of underlying COPD Recommend outpatient pulmonary function testing Fairly asymptomatic is unclear to me if these mitigating any of his symptoms or not at this time but regardless he likely be a candidate for long acting muscarinic antagonist Encouraged him to receive influenza vaccine and pneumococcal vaccine (3) Sleep-disordered breathing Current Visit: Yes Status: Acute Based upon upper airway anatomy and body habitus I suspect obstructive sleep apnea given the relationship between cardiopulmonary disease I recommend outpatient formal polysomnogram. I did intellectual property counsel the patient about this diagnosis and does not engage in activities that require constant vigilance if he is sleepy (4) Obesity (BMI 30-39.9) Current Visit: Yes Status: Acute Weight loss encouraged (5) Tobacco abuse Current Visit: Yes Status: Acute I counseled the patient about the cardiopulmonary consequences of smoking as well as cancer and stroke Patient very respectfully but frankly told me that he is "not very smart" he does not anticipate making any modifications to his lifestyle at this time and really did not want to have any pulmonary follow-up. I told him that I respect his decision but we were not available in the pulmonary clinic if he had any further questions about his underlying pulmonary health I do not see that there is a critical care diagnosis associated with this patient at this point and would defer to cardiology for further management Pulmonary will sign off thank you for this consultation please call with any questions History of Present Illness Consult date: 02/13/18 Requesting physician: Arthur Cota Reason for consult: other (STEMI) Chief complaint: Chest pain History of present illness: This is a 8-year-old gentleman with past medical history coronary artery disease who presented to the emergency room last night with chest pain after having colonoscopy previously in the day chest pain was in his upper chest with radiation to his jaw complicated by nausea and lightheadedness dizziness and weakness he describes it at 6 out of 10 level of pain. He has been off his dual antiplatelet therapy holding Plavix because of the preparation for colonoscopy. In the emergency room found to have ST elevation TX with ST elevation in lead [address] depressions in V2 and V3 he was evaluated by the cardiology service and was taken to the [facility] found to have where he had PCI 3 to the OM. Patient has been hemodynamically stable and on room air is in the duration of his hospitalization. Cardiology has consulted to pulmonary because of critical care concern post TX. Today the patient states that he is feeling much better denies any chest pain. He is just anxious to go home. He has been a lifelong smoker since mid adolescence and he continues to smoke a pack to a pack and a half a day. He is also had extensive industrial pollutants exposure while working at [employer] for many years exposed to fumes chemicals and dust in his occupation there. No significant hobbies which would lead to pulmonary exposures. He keeps a dog outside. No exotic pets. Patient states that he sleeps well he is not ever been told that he snores loudly he denies waking up with a dry mouth or headache and occasionally but he says he plans on doing that now that he is retired. No accidents related to sleepiness. He is very obese. Past Med Surg Social Fam HX - Past Medical History Medical history: hyperlipidemia, hypertension, myocardial infarction Psychiatric history: no psych history - Past Surgical History Surgical History: angioplasty/stent - Social History Smoking Status: Current every day smoker Smokeless Tobacco Status: No Alcohol use: heavy Drug use: none Medications and Allergies Atorvastatin [Lipitor] 40 mg PO HS 02/12/18 [History] Clopidogrel [Plavix] 75 mg PO DAILY 02/12/18 [History] Lisinopril [Zestril] 20 mg PO DAILY 02/12/18 [History] 3 Allergy/AdvReac Type Severity Reaction Status Date / Time Penicillins Allergy See Verified 07/28/15 06:20 Comments All Systems: The remainder of the systems were reviewed and are negative Physical Examination Vital Signs: Vital Signs, Last 4 Hours Temp Pulse Resp BP Pulse Ox 02/13/18 06:00 71 16 129/71 98 02/13/18 05:00 75 18 165/90 96 02/13/18 04:00 86 20 167/89 98 02/13/18 03:59 99.3 F General appearance: no acute distress Eyes: nonicteric ENT: oropharynx moist Mallampati (class): 4 Neck: supple, no lymphadenopathy Effort: normal Auscultation: bilateral: clear Cardiovascular: regular rate and rhythm Gastrointestinal: normoactive bowel sounds, soft, non-tender Integumentary: normal Extremities: no cyanosis, no edema, no clubbing Musculoskeletal: no deformities normal mental status, non-focal exam, pupils equal and round mood appropriate Results - Laboratory Findings CBC and BMP: 02/12/18 15:30 02/12/18 15:30 PT/INR, D-dimer PT 12.4 Seconds (9.4-12.1) H 02/12/18 15:30 Abnormal lab findings: Abnormal lab results WBC 12.7 K/mcL (4.3-11.1) H 02/12/18 15:30 RBC 5.69 M/mcL (4.19-5.50) H 02/12/18 15:30 Hgb 17.8 g/dL (12.9-16.9) H 02/12/18 15:30 Hct 52.3 % (37.5-50.1) H 02/12/18 15:30 Neutrophils # 9.9 K/mcL (1.6-8.9) H 02/12/18 15:30 PT 12.4 Seconds (9.4-12.1) H 02/12/18 15:30 Heparin Anti-Xa, Unfract 0.03 IU/mL (0.30-0.70) L 02/12/18 19:36 Est GFR (Non-Af Amer) 57 (> 60) L 02/12/18 15:30 Glucose 153 mg/dL (70-105) H 02/12/18 15:30 - Diagnostic Findings Chest x-ray: report reviewed, image reviewed - Clinical Findings Intake & Output: Intake & Output 02/12/18 02/12/18 02/13/18 15:59 23:59 07:59 Intake Total 1000 / 1002 1069 / 1069 Output Total 1150 / 1150 700 / 700 Balance -150 / -148 369 / 369 Weight 131.9 kg Consult Discharge Plan - Plan Referrals: Todd Ventura Jr, MD [Primary Care Provider] -
[2018-02-13] MEDS: *HR* Ticagrelor 90 MG TABLET PO SCH ×2 (08:16→20:52)
[2018-02-13] MEDS ORDERED: Lisinopril 20 MG TABLET PO SCH ×2 (09:00→21:00)
--- NOTE | 2018-02-13 13:29 | Cardiology Progress Note ---
Date of Encounter: 02/13/18 Time of Encounter: 13:26 Assessment and Plan (1) ST elevation myocardial infarction (STEMI) Current Visit: Yes Status: Acute STEMI s/p PCI to PCI to CX territory. Report is still pending. Spoke with Dr. Cota, who would like to perform staged PCI to the ostial RCA in 2 weeks. Importance of DAPT uninterrupted for at least one year discussed with patient. He voiced understanding. Recommend statin and beta ayush therapy. TTE pending. Okay to transfer to . Qualifiers: Involved coronary artery: unspecified coronary artery Qualified Code(s): I21.3 - ST elevation (STEMI) myocardial infarction of unspecified site Discussion w patient/family: The assessment and plan as outlined above was discussed with the patient and/or family members who expressed understanding and agreement. All questions were answered. Thank you for involving us in the care of your patient. Please call with any questions. Subjective Principal diagnosis: STEMI Interval history: Overall, patient reports he feels much better. Chest pain has improved. No issues overnight. No arrhythmias on telemetry. Objective Vital Signs, Last 4 Hours Pulse Resp BP Pulse Ox 02/13/18 11:21 63 16 134/72 95 General: Conversant, No Apparent Distress HEENT: Atraumatic, Normocephaly, Mucus Membranes Moist Neck: No JVD, Normal carotid pulses Cardiac: Reg Rate and Rhythm, Normal S1 and S2, No Murmur Lungs: Normal Breath Sounds, No Wheeze, Rales, Rhonchi Neuro: Alert and responsive, No focal deficits noted Abdomen: Soft, Non-Tender Skin: No rashes noted on visualized skin Musculoskeletal: No Chest Wall Tenderness Extremities: No Clubbing, No Cyanosis, No Edema Results 02/12/18 15:30 02/12/18 15:30 - Imaging and Cardiology Cardiac cath: pending - EKG Interpretation EKG results cardiology: personally reviewed Consult Discharge Plan - Plan Referrals: Todd Ventura Jr, MD [Primary Care Provider] -
[2018-02-13] MEDS ORDERED: Aspirin Enteric Coated 81 MG Tablet PO SCH (13:45)
[2018-02-13] MEDS ORDERED: Aspirin 81 MG TAB.CHEW PO ONE (15:31)
[2018-02-14] MEDS: *HR* Ticagrelor 90 MG TABLET PO SCH (08:33)
[2018-02-14] MEDS ORDERED: Aspirin Enteric Coated 81 MG Tablet PO SCH (09:00)
--- NOTE | 2018-02-14 09:47 | Electrocardiograph Report ---
[address] [place] [address] Test Date: 2018-02-12 Pat Name: Brendon Martinez Department: 112 Room: 2N15 Gender: M Delicatessen Slicer: TAISHA : 1955 Requested By: Arthur Cota Order Number: [id number] Reading MD: Anna Pires Measurements Intervals [place] Rate: 82 P: 63 MI: 181 QRS: -71 QRSD: 106 T: 83 QT: 388 QTc: 426 Interpretive Statements SINUS RHYTHM POSSIBLE RIGHT VENTRICULAR CONDUCTION DELAY LEFT ANTERIOR FASCICULAR BLOCK INFERIOR MYOCARDIAL INFARCTION, PROBABLY OLD WITH POSTERIOR EXTENSION Electronically Signed On 02-14-2018 9:45:34 EDT by Anna Pires
--- NOTE | 2018-02-14 10:20 | Electrocardiograph Report ---
[address] [place], [place] [address] Test Date: 2018-02-12 Pat Name: Brendon Martinez Department: EXAM14 Room: 2N15 Gender: M Registered Nurse Obstetrics: : 1955 Requested By: Vinny Brito Order Number: [id number] Reading MD: Anna Pires Measurements Intervals [place] Rate: 76 P: 62 MO: 184 QRS: -62 QRSD: 126 T: 36 QT: 428 QTc: 482 Interpretive Statements Sinus rhythm Multiple ventricular premature complexes Nonspecific IVCD with LAD Borderline ST elevation, lateral leads - CONSIDER ISCHEMIA Electronically Signed On 02-14-2018 10:18:37 EDT by Anna Pires
[2018-02-14 11:11] VITALS: BP 129/79
[2018-02-14 11:12] LABS: Basophils % 0.3 %; Eosinophils # 0.1 K/mcL (0.0-0.6); Eosinophils % 0.9 %; Hematocrit 48.5 % (37.5-50.1); Hemoglobin 16.7 g/dL (12.9-16.9); Immature Granulocytes % 0.4 % (0-4); Lymphocytes # 1.3 K/mcL (0.6-4.6); Lymphocytes % 12.4 %; Mean Corpuscular HGB Conc 34.4 g/dL (31.6-35.5); Mean Corpuscular Hemoglobin 31.3 pg (28.0-33.3); Mean Corpuscular Volume 90.8 fL (83.0-100.0); Mean Platelet Volume 11.6 fL (9.4-12.4); Monocytes # 0.8 K/mcL (0.0-1.3); Monocytes % 7.8 %; Neutrophils # 8.3 K/mcL (1.6-8.9); Platelet Count 152 K/mcL (140-400); Red Blood Count 5.34 M/mcL (4.19-5.50); Red Cell Distribution Width 12.4 % (11.5-14.5); Segmented Neutrophils % 78.2 %
[2018-02-14 11:30] LABS: BUN/Creatinine Ratio 14 (6-26); Blood Urea Nitrogen 15 mg/dL (8-23); Calcium 8.4 mg/dL (8.6-10.3); Carbon Dioxide 23 mEq/L (23-29); Chloride 108 mEq/L (98-107); Glucose 104 mg/dL (70-105); Osmolality,Calculated 285 (280-300); Potassium 4.1 mEq/L (3.5-5.1); Sodium 137 mEq/L (136-145); eGFR For Non-African Americans > 60 (> 60)
--- NOTE | 2018-02-14 12:14 | Discharge Summary ---
Orders not resulted at time of discharge: Pending orders 02/14/18 08:32 EV echocardiogram Routine Date of Encounter: 02/14/18 Time of Encounter: 12:12 - Discharge Diagnosis (1) ST elevation myocardial infarction (STEMI) Priority: Primary Status: Acute Qualifiers: Involved coronary artery: unspecified coronary artery Qualified Code(s): I21.3 - ST elevation (STEMI) myocardial infarction of unspecified site (2) COPD suggested by initial evaluation Priority: Secondary Status: Chronic (3) Obesity (BMI 30-39.9) Priority: Secondary Status: Chronic (4) Sleep-disordered breathing Priority: Secondary Status: Chronic (5) Tobacco abuse Priority: Secondary Status: Chronic - Hospital Course Hospital course: Mr. Martinez is a 62 year old male with h/o CAD s/p PCI who presents with acute MT. He underwent emergent LHC and received PCI to CX territory. Dr. Cota, would like to perform staged PCI to the ostial RCA in 2 weeks. There was no complication from his procedure. No arrhythmias seen during his stay. Right femoral access site with small pea sized knot. Area with mild tenderness and ecchymosis. Instructed to monitor for changes. He is ambulating without difficulty. Importance of DAPT uninterrupted for minimum one year discussed and reviewed with patient and he voices understanding. Continue statin and bb. TTE is pending. If no concerning finding he will be discharged later today. - Time Spent with Patient Total time spent providing and/or coordinating discharge services: Greater than 30 minutes (D/c summary, teaching, med rec, 1hr) - Discharge Medications Prescriptions: Aspirin Enteric Coated [Aspirin EC] 81 mg PO DAILY #30 tablet. Carvedilol [Coreg] 6.25 mg PO BIDWM #60 tablet Ticagrelor [Brilinta] 90 mg PO BID #60 tablet Home Medications: Atorvastatin [Lipitor] 40 mg PO HS 02/12/18 [History] Lisinopril [Zestril] 20 mg PO DAILY 02/12/18 [History] Aspirin Enteric Coated [Aspirin EC] 81 mg PO DAILY #30 tablet. 02/14/18 [Rx] Carvedilol [Coreg] 6.25 mg PO BIDWM #60 tablet 02/14/18 [Rx] Ticagrelor [Brilinta] 90 mg PO BID #60 tablet 02/14/18 [Rx] Allergies/Adverse Reactions: 3 Allergy/AdvReac Type Severity Reaction Status Date / Time Penicillins Allergy See Verified 07/28/15 06:20 Comments Date of admission: 02/12/18 16:02 Primary care physician: Todd Ventura Jr, MD Consults: Pilmonology Discharging clinician: Abiodun Vargas Anticipated date of discharge: 02/14/18 Physical Examination Vital Signs, Last 4 Hours Temp Pulse Pulse Resp BP Pulse Ox 02/14/18 11:07 98.0 F 68 18 129/79 97 02/14/18 08:30 98.2 F 60 74 18 133/79 96 02/14/18 08:15 98.2 F 60 18 133/79 96 General: Conversant, No Apparent Distress HEENT: Atraumatic, Normocephaly, Mucus Membranes Moist Neck: No JVD, Normal carotid pulses Cardiac: Reg Rate and Rhythm, Normal S1 and S2, No Murmur Lungs: Normal Breath Sounds, No Wheeze, Rales, Rhonchi Neuro: Alert and responsive, No focal deficits noted Abdomen: Soft, Non-Tender Skin: No rashes noted on visualized skin Musculoskeletal: No Chest Wall Tenderness Extremities: No Clubbing, No Cyanosis, No Edema, Normal Pulses, Other ( ecchymosis right femoral access site. No significant hematoma. ) - Patient Status Disposition: Home, Self-Care Condition: Fair Functional capacity at discharge: independent ambulation Overall status at discharge: patient is progressing back to baseline - Discharge Instructions Follow Up With: Todd Ventura Jr, MD [Primary Care Provider] - Forms: ED Satisfaction Letter Additional Instructions: RISK FACTORS: STOP SMOKING: If you smoke, STOP. Smoking or tobacco use significantly increases your risk of heart disease because nicotine causes the arteries to narrow or constrict. It also causes fats to stick to the artery. Your chances of having a heart attack are greatly increased if you continue to smoke. For more information, call the education line for smoking cessation 2-431-QVPHEHB EAT A LOW FAT/CHOLESTEROL/SODIUM DIET: This diet may help reduce your chances of having a heart attack. LIFTING: Avoid lifting anything more than 10 pounds for 5-7 days Prior to straining, laughing, sneezing and/or coughing, apply manual pressure directly over insertion site. ACTIVITY: You may walk or climb stairs as tolerated You can resume sexual activity as tolerated In general, you are encouraged to engage in a minimum of 30 minutes or more of moderate intensity physical activity, such as brisk walking, daily or at least 3 -4 times weekly BATHING Do not submerge the site into water (bath tub, hot tub, swimming pool) for 1 week. This can be a source for infection into the blood stream. You may shower after 24 hours SITE CARE: After 24 hours, you may remove the dressing and leave the site open to air. Keep the site clean and dry. Clean gently and pat dry. You can expect bruising and tenderness that gradually resolve within a week or two. Return to work as instructed per your physician Resume driving as instructed per physician Keep all scheduled follow up appointments Resume medications as instructed IMPORTANT: If prescribed a Platelet Aggregation Inhibitor such as, Plavix, Brilinta or Effient: Duration of therapy is minimum one year These medications are often used in combination with Aspirin in prevention of future heart attacks Never discontinue unless consult with your Vice President Compliance STROKE (CVA) Risk factors for a stroke are: Age, cigarette smoking, diabetes, excessive alcohol consumption, family history, high blood pressure, overweight, physical inactivity, prior stroke, heart attack, diagnosis of carotid artery stenosis or other artery disease. Warning signs: Sudden numbness or weakness of the face, arm or leg; especially on one side of the body, sudden confusion, trouble speaking or understanding, sudden trouble seeing in one or both eyes, sudden trouble walking, dizziness, loss of balance or coordination, sudden severe headache with no cause. Call 911 or go to the Emergency Room. CONGESTIVE HEART FAILURE: If you have been diagnosed with Congestive Heart Failure (CHF) and your symptoms return, make an appointment with your physician Weigh yourself daily. Notify your physician if you have a weight gain of two or more pounds in one day or five or more pounds in one week. If you experience any difficulty breathing, please call 911 BLEEDING: Although the risk of bleeding is minimal, it can happen. If you have any bleeding from the site, apply firm pressure above the puncture site for 10-15 minutes. If the bleeding does not stop, continue manual pressure and call 911 Contact your physician if: You develop a fever greater than 101 degrees Fahrenheit Your site becomes reddened or has any drainage You have an increase in pain or burning at the site or if a large knot forms at the site. If you experience chest pain, shortness of breath, dizziness, or extreme tiredness, stop the activity and rest. Please notify your physicians office if you experience any of these symptoms and they are not relieved by rest please call 911! - Diet and Activity Activity: increase activity as tolerated Diet: low fat, low cholesterol
[2018-02-14] MEDS ORDERED: Perflutren Lipid Microsphere 1.3 ML in 0.9 % Sodium Chloride 8.7 ML IVP ONE (13:54)
--- NOTE | 2018-02-15 17:08 | Electrocardiograph Report ---
[place] [id number] Test Date: 2018-02-12 Pat Name: Brendon Martinez Department: EXAM14 Room: 2N15 Gender: M Application Security Consultant: : 1955 Requested By: Kirsten Perales Order Number: [id number] Reading MD: Laith Kaba Measurements Intervals [place] Rate: 79 P: 64 [place]: 176 QRS: -53 QRSD: 132 T: 33 QT: 414 QTc: 475 Interpretive Statements Sinus rhythm Multiform ventricular premature complexes Nonspecific IVCD with LAD Electronically Signed On 02-15-2018 17:07:28 EDT by Laith Kaba
--- NOTE | 2018-02-16 13:07 | Electrocardiograph Report ---
[place] [address] Test Date: 2018-02-14 Pat Name: JANE SWEET Department: 110 Room: 2N15 Gender: Male Farm Crew Leader: JOAQUÍN : 1955 Requested By: Arthur Cota Order Number: [id number] Reading MD: Anna Pires Measurements Intervals [place] Rate: 77 P: 64 [place]: 166 QRS: -64 QRSD: 109 T: 112 QT: 406 QTc: 438 Interpretive Statements SINUS RHYTHM INCOMPLETE RIGHT BUNDLE BRANCH BLOCK LEFT ANTERIOR FASCICULAR BLOCK Electronically Signed On 02-16-2018 13:06:12 EDT by Anna Pires
== END 2018-02-14 16:24 | disposition home or self-care (01) | DRG 251 ==
LOC: EMEROOARM 15:11 → ICNU 16:00 → 2NNU 02-13 20:54
PROVIDERS: ADMIT Internal Medicine Cardiovascular Disease; ATTEND Internal Medicine Cardiovascular Disease

== ENCOUNTER 2021-10-05 15:27 | Observation (INO) ==
[2021-10-05] MEDS ORDERED: Aspirin 81 MG TAB.CHEW PO ONE (15:33)
[2021-10-05] MEDS ORDERED: Nitroglycerin 0.4 MG TAB.SUBL SL PRN (15:33)
[2021-10-05] MEDS ORDERED: *HR* FentaNYL (PF) 100 MCG/2 ML VIAL IVP STA (15:37)
[2021-10-05 15:58] LABS: Basophils # 0.1 K/mcL (0.0-0.2); Basophils % 0.6 %; Eosinophils # 0.2 K/mcL (0.0-0.6); Eosinophils % 2.2 %; Hematocrit 47.5 % (37.5-50.1); Hemoglobin 16.1 g/dL (12.9-16.9); Immature Granulocytes % 0.3 % (0-4); Lymphocytes # 1.7 K/mcL (0.6-4.6); Lymphocytes % 16.1 %; Mean Corpuscular HGB Conc 33.9 g/dL (31.6-35.5); Mean Corpuscular Hemoglobin 31.8 pg (28.0-33.3); Mean Corpuscular Volume 93.9 fL (83.0-100.0); Mean Platelet Volume 11.7 fL (9.4-12.4); Monocytes # 0.7 K/mcL (0.0-1.3); Monocytes % 6.8 %; Neutrophils # 7.9 K/mcL (1.6-8.9); Platelet Count 157 K/mcL (140-400); Red Blood Count 5.06 M/mcL (4.19-5.50); Red Cell Distribution Width 13.2 % (11.5-14.5); White Blood Count 10.7 K/mcL (4.3-11.1)
[2021-10-05 16:09] LABS: INR 1.2; Prothrombin Time 13.3 Seconds (9.4-12.1)
[2021-10-05 16:11] LABS: Activated Partial Thrombo Time 32.2 Seconds (26.0-36.0)
[2021-10-05 16:55] LABS: Calcium 9.2 mg/dL (8.6-10.3); Potassium 4.5 mEq/L (3.5-5.1); Troponin I 0.09 ng/mL (< 0.04)
[2021-10-05] MEDS ORDERED: *HR* Heparin 5,000 UNIT/ML VIAL IVP PRN ×2 (17:55)
[2021-10-05] MEDS ORDERED: *HR* Heparin 5,000 UNIT/ML VIAL IVP ONE ×2 (17:55→21:15)
[2021-10-05] MEDS ORDERED: Morphine Sulfate 2 MG/ML SYRINGE IVP PRN (20:23)
[2021-10-05] MEDS ORDERED: Perflutren Lipid Microsphere 1.3 ML in 0.9 % Sodium Chloride 8.7 ML IVP PRN (20:25)
[2021-10-05] MEDS ORDERED: Naloxone 0.4 MG/ML INJ IVP PRN (20:54)
[2021-10-05] MEDS ORDERED: Ondansetron 4 MG/2 ML VIAL IVP PRN (20:54)
[2021-10-05] MEDS: Heparin 25,000UNIT/250ML 1/2NS 25,000 UNIT/250 ML IV.SOLN IVC SCH (21:00)
[2021-10-05] MEDS ORDERED: Acetaminophen 325 MG TABLET PO PRN (21:00)
[2021-10-05 21:01] LABS: Hematocrit 50.9 % (37.5-50.1); Mean Corpuscular HGB Conc 33.4 g/dL (31.6-35.5); Mean Corpuscular Hemoglobin 31.7 pg (28.0-33.3); Mean Corpuscular Volume 94.8 fL (83.0-100.0); Mean Platelet Volume 11.5 fL (9.4-12.4); Platelet Count 168 K/mcL (140-400); Red Blood Count 5.37 M/mcL (4.19-5.50); Red Cell Distribution Width 13.4 % (11.5-14.5); White Blood Count 13.9 K/mcL (4.3-11.1)
[2021-10-05 21:09] LABS: INR 1.1; Prothrombin Time 12.5 Seconds (9.4-12.1)
[2021-10-05 21:12] LABS: Heparin anti-factor XA UFH < 0.04 IU/mL (0.30-0.70)
[2021-10-06 03:24] LABS: Mean Corpuscular Hemoglobin 31.1 pg (28.0-33.3); Mean Corpuscular Volume 93.8 fL (83.0-100.0); Red Cell Distribution Width 13.3 % (11.5-14.5)
[2021-10-06 03:26] LABS: Hematocrit 45.5 % (37.5-50.1); Hemoglobin 15.1 g/dL (12.9-16.9); Immature Platelets 7.3 % (1.1-6.1); Mean Corpuscular HGB Conc 33.2 g/dL (31.6-35.5); Mean Platelet Volume 11.4 fL (9.4-12.4); Red Blood Count 4.85 M/mcL (4.19-5.50)
[2021-10-06 03:46] LABS: BUN/Creatinine Ratio 12 (6-26); Blood Urea Nitrogen 13 mg/dL (8-23); Calcium 8.6 mg/dL (8.6-10.3); Carbon Dioxide 25 mEq/L (23-29); Chloride 108 mEq/L (98-107); Chol/HDL Ratio 1.9 (0-4.9); Cholesterol 79 mg/dL (< 200); Glucose 88 mg/dL (70-105); HDL Cholesterol 41 mg/dL (40-59); LDL Cholesterol,Calculated 18 mg/dL (< 100); Osmolality,Calculated 288 (280-300); Potassium 3.7 mEq/L (3.5-5.1); Sodium 139 mEq/L (136-145); Triglycerides 99 mg/dL (< 150); eGFR For African Americans > 60 (> 60); eGFR For Non-African Americans > 60 (> 60)
[2021-10-06 06:37] LABS: Estimated Average Glucose 114 mg/dl; Hemoglobin A1C 5.6 %
[2021-10-06] MEDS: Aspirin Enteric Coated 81 MG Tablet PO SCH (08:38)
[2021-10-06] MEDS: carvediloL 6.25 MG TABLET PO SCH ×2 (08:38→17:16)
[2021-10-06 09:08] LABS: Bilirubin,Urine Negative (Negative); Blood,Urine Small (Negative); Clarity,Urine Clear (Clear); Color,Urine Light-Yellow (Yellow); Glucose,Urine (UA) Normal (Normal); Hyaline Casts,Urine Few per lpf (None Seen); Ketones,Urine 10 mg/dL (Negative); Leukocyte Esterase,Urine Negative (Negative); Mucus,Urine Few per lpf (None-Few); Nitrite,Urine Negative (Negative); PH,Urine 5.5 pH Units (5.0-8.0); Protein,Urine Trace mg/dL (Neg-Trace); Urobilinogen,Urine Normal (Normal); WBC,Urine 0-3 per hpf (0-3)
[2021-10-06] MEDS: Heparin 25,000UNIT/250ML 1/2NS 25,000 UNIT/250 ML IV.SOLN IVC SCH (12:25)
[2021-10-06] MEDS ORDERED: *HR* FentaNYL (PF) 100 MCG/2 ML VIAL ONE (14:52)
[2021-10-06] MEDS ORDERED: 0.9 % Sodium Chloride 2,000 ML ONE (14:53)
[2021-10-06] MEDS ORDERED: *HR* Midazolam HCl 2 MG/2 ML VIAL ONE ×2 (14:53→15:42)
[2021-10-06] MEDS ORDERED: *HR* Heparin 10,000 UNIT/10 ML VIAL ONE (14:54)
[2021-10-06] MEDS ORDERED: ISOVUE-370 200 ML INFUS..BTL ONE (14:54)
[2021-10-06] MEDS ORDERED: Nitroglycerin 1,000 MCG/5 ML VIAL IV ONE (14:54)
[2021-10-06] MEDS ORDERED: Heparin 1,000 UNITS/500 mL 500 ML ONE (14:54)
[2021-10-06] MEDS ORDERED: *HR* Bivalirudin 250 MG VIAL IVC ONE (15:59)
[2021-10-06] MEDS ORDERED: *HR* Ticagrelor 90 MG TABLET ONE (16:21)
[2021-10-06] MEDS ORDERED: 0.9 % Sodium Chloride 1,000 ML IVC SCH (17:00)
[2021-10-06] MEDS: *HR* Ticagrelor 90 MG TABLET PO SCH (20:33)
[2021-10-07 04:05] LABS: Hematocrit 44.1 % (37.5-50.1); Hemoglobin 14.8 g/dL (12.9-16.9); Immature Platelets 8.8 % (1.1-6.1); Mean Corpuscular HGB Conc 33.6 g/dL (31.6-35.5); Mean Corpuscular Hemoglobin 31.4 pg (28.0-33.3); Mean Corpuscular Volume 93.6 fL (83.0-100.0); Mean Platelet Volume 11.9 fL (9.4-12.4); Red Blood Count 4.71 M/mcL (4.19-5.50); Red Cell Distribution Width 13.2 % (11.5-14.5); White Blood Count 8.2 K/mcL (4.3-11.1)
[2021-10-07 04:17] LABS: BUN/Creatinine Ratio 14 (6-26); Blood Urea Nitrogen 16 mg/dL (8-23); Calcium 8.1 mg/dL (8.6-10.3); Carbon Dioxide 27 mEq/L (23-29); Chloride 108 mEq/L (98-107); Glucose 106 mg/dL (70-105); Osmolality,Calculated 290 (280-300); Potassium 3.9 mEq/L (3.5-5.1); Sodium 139 mEq/L (136-145); eGFR For African Americans > 60 (> 60); eGFR For Non-African Americans > 60 (> 60)
[2021-10-07] MEDS: *HR* Ticagrelor 90 MG TABLET PO SCH (08:50)
[2021-10-07] MEDS: Aspirin Enteric Coated 81 MG Tablet PO SCH (08:50)
[2021-10-07] MEDS: carvediloL 6.25 MG TABLET PO SCH (08:50)
[2021-10-07 11:28] VITALS: BP 150/85; PULSE 59; TEMP 98.3; O2SAT 96
== END 2021-10-07 13:05 | disposition home or self-care (01) ==
LOC: EMEROOARM 15:27 → 2ANU 15:27 → SUATTDRO 18:21 → 2ANU 20:10
PROVIDERS: ADMIT Student in an Organized Health Care Education/Training Program; ATTEND Family Medicine